=== PATIENT | male | born 1975 | race Caucasian/White ===

== ENCOUNTER 2023-10-05 12:10 | Day surgery (SDC) | payer OTHER ==
[~2023-10-05] VITALS: Ht 188 cm; Wt 100.3 kg
[~2023-10-05 12:10] MED LIST: IBUP200 PO; Lactated Ringer's 1,000 ML IV ONE; PRILOSEC PO; PROBIOTIC-10 PO; propofoL 50 ML IV ONE
[2023-10-05] MEDS ORDERED: OMEP20ER (12:29)
[2023-10-05] MEDS ORDERED: Lactated Ringer's 1,000 ML IV ONE (12:56)
== END 2023-10-05 15:22 | disposition home or self-care (01) ==
LOC: ORSCSDS 12:10
PROVIDERS: Internal Medicine Gastroenterology
PROC: 0DBK8ZX Excision of Ascending Colon, Via Natural or Artificial Opening Endoscopic, Diagnostic (ICD-10-PCS; principal; 2023-10-05 13:15)
PROC: 0DJ08ZZ Inspection of Upper Intestinal Tract, Via Natural or Artificial Opening Endoscopic (ICD-10-PCS; principal; 2023-10-05 13:15)
DX: K21.9 Gastro-esophageal reflux disease without esophagitis (principal); D12.2 Benign neoplasm of ascending colon; K57.30 Diverticulosis of large intestine without perforation or abscess without bleeding; Z12.11 Encounter for screening for malignant neoplasm of colon; Z87.891 Personal history of nicotine dependence; Z79.899 Other long term (current) drug therapy
CPT/HCPCS: 88305; J2704; J7120